=== PATIENT | female | born 1955 | race Caucasian/White ===

== ENCOUNTER 2016-07-30 16:01 | Emergency (ER) | payer OTHER ==
[~2016-07-30] VITALS: Ht 170.2 cm; Wt 77.1 kg
[~2016-07-30 16:01] MED LIST: ASPI-231 PO
[2016-07-30 16:48] LABS: DEFINITIVE VIEW TRANSMISSION; SUSPECT VIEW TRANSMISSION
[2016-07-30] MEDS ORDERED: SUCCINYLCHOLINE CHLORIDE 20 MG/ML 10ML VIAL IV ONE ×2 (16:49→17:30)
[2016-07-30] MEDS ORDERED: ETOMIDATE (2MG/ML) 20ML VIAL IV ONE ×2 (16:49→17:30)
[2016-07-30 16:53] LABS: Hematocrit 35.1 % (36.0-46.0); Hemoglobin 12.1 g/dL (12.2-16.2); Mean Corpuscular Hemoglobin 41.1 pg (28.0-32.0); Mean Corpuscular Hgb Conc. 34.4 g/dL (32.0-36.0); Mean Corpuscular Volume 119.3 fL (80.0-100.0); Mean Platelet Volume 10.8 fL (7.4-10.4); Platelet Count (auto) 108 10^3/uL (140-450); Red Cell Distribution Width 21.5 % (11.6-16.0); White Blood Cell 10.6 10^3/uL (4.4-10.8)
[2016-07-30 16:55] LABS: Metamyelocytes % 0; Myelocytes % 0; Promyelocytes % 0; Reactive Lymphocytes 0
[2016-07-30 17:00] LABS: Albumin 1.9 g/dL (3.4-5.0); Alkaline Phosphatase 155 U/L (45-117); Anion Gap 10 (5-15); Aspartate Aminotransferase 176 U/L (15-37); BUN/Creatinine Ratio 18.2; Bilirubin, Total 5.8 mg/dL (0.2-1.0); Blood Urea Nitrogen 16 mg/dL (7-18); Calcium 7.3 mg/dL (8.5-10.1); Carbon Dioxide 33 mmol/L (21-32); Chloride 94 mmol/L (98-107); GFR African American 84 mL/min; GFR Non-African American 69 mL/min; Glucose 104 mg/dL (74-106); Magnesium 2.1 mg/dL (1.6-2.6); Sodium 137 mmol/L (136-145); Total Protein 7.1 g/dL (6.4-8.2)
[2016-07-30] MEDS ORDERED: MIDAZOLAM DRIP 100 mg/100mL NS 100 ML IV ONE (17:00)
[2016-07-30 17:28] LABS: Anisocytosis Marked; Macrocytosis Marked
[2016-07-30 17:29] LABS: Large Platelets FEW; Platelet Estimate Decrea; Stomatocytes Few
[2016-07-30] MEDS ORDERED: MORPHINE SULFATE 4 MG/ML SYRG IV ONE (17:30)
[2016-07-30] MEDS ORDERED: FUROSEMIDE 40 MG/4 ML VIAL IV ONE (17:30)
[2016-07-30] MEDS ORDERED: MIDAZOLAM DRIP 100 mg/100mL NS 100 ML IV SCH (17:30)
[2016-07-30] MEDS ORDERED: ONDANSETRON HCL 4 MG/2 ML VIAL IV ONE (17:30)
[2016-07-30 17:45] LABS: Potassium 2.2 mmol/L (3.5-5.1)
[2016-07-30] MEDS ORDERED: POTASSIUM CHL 20MEQ/100ML 100 ML IV SCH (17:45)
[2016-07-30 18:48] VITALS: BP 105/66
[2016-07-30 18:48] LABS: Lactic Acid 2.6 mmol/L (0.4-2.0)
[2016-07-30 19:18] LABS: REFLEX LACTIC ACID YES OR NO YES
[2016-07-30 20:22] LABS: Urine Blood Negative /uL (Negative); Urine Color Orange (Yellow); Urine Glucose Normal (Normal); Urine Ketone Negative (Negative); Urine Nitrite Negative (Negative); Urine RBC 1 /hpf (0 - 4); Urine Squamous Epithelial Cell FEW /hpf (<5); Urine Urobilinogen >12.0 mg/dL (Negative); Urine pH 6.5 (5.0-8.0)
[2016-07-30 20:43] LABS: Urine Bilirubin Negative (Negative)
== END 2016-07-30 19:43 | disposition short-term general hospital (02) ==
LOC: ER 16:01 → EDBD 16:01 → ER 19:43
DX: S42.201A Unspecified fracture of upper end of right humerus, initial encounter for closed fracture (principal); G93.41 Metabolic encephalopathy; I50.9 Heart failure, unspecified; M19.90 Unspecified osteoarthritis, unspecified site; E87.6 Hypokalemia; J44.9 Chronic obstructive pulmonary disease, unspecified; F17.210 Nicotine dependence, cigarettes, uncomplicated; M54.9 Dorsalgia, unspecified; R41.82 Altered mental status, unspecified; G89.29 Other chronic pain; Z79.82 Long term (current) use of aspirin; X58.XXXA Exposure to other specified factors, initial encounter; Y93.89 Activity, other specified; Y99.8 Other external cause status; Y92.89 Other specified places as the place of occurrence of the external cause
CPT/HCPCS: 31500; 36415; 51702; 70450; 71010; 80053; 80320; 81001; 83605; 83735; 85007; 85027; 87040; 87070; 87077; 87186; 87205; 93005; 96361; 96374; 96375; 99291; G0434; J0330; J1940; J2270; J2405; J3480; J7030

== ENCOUNTER 2016-08-30 16:09 | Emergency (ER) | payer OTHER ==
[~2016-08-30] VITALS: Ht 167.6 cm; Wt 56.7 kg
[2016-08-30 17:40] VITALS: BP 124/67
== END 2016-08-30 19:44 | disposition home or self-care (01) ==
LOC: EDBD 16:09 → ER 16:10
DX: J04.0 Acute laryngitis (principal); M19.90 Unspecified osteoarthritis, unspecified site; J44.9 Chronic obstructive pulmonary disease, unspecified; K76.9 Liver disease, unspecified; Z87.11 Personal history of peptic ulcer disease; Z90.710 Acquired absence of both cervix and uterus; Z90.89 Acquired absence of other organs

== ENCOUNTER 2016-11-26 08:00 | Inpatient (IN) | payer OTHER ==
[2016-11-26] VITALS (24 sets, daily range): BP systolic 70–150; BP diastolic 26–67
[~2016-11-26] VITALS: Ht 162.6 cm; Wt 75.8 kg
[2016-11-26] MEDS ORDERED: PANTOPRAZOLE SODIUM 40 MG/10 ML VIAL IV ONE ×2 (09:15→10:30)
[2016-11-26] MEDS: NOREPINEPHRINE BITARTRATE 250 ML IV SCH (09:45)
[2016-11-26] MEDS ORDERED: SODIUM CHLORIDE 0.9% 1,000 ML IV ONE ×2 (09:45→21:30)
[2016-11-26 09:50] LABS: CONDITION Y; DEFINITIVE SEE PRINTOUT; Hematocrit 23.3 % (36.0-46.0); Mean Corpuscular Hemoglobin 32.3 pg (28.0-32.0); Mean Corpuscular Hgb Conc. 34.5 g/dL (32.0-36.0); Mean Corpuscular Volume 93.7 fL (80.0-100.0); Mean Platelet Volume 12.9 fL (7.4-10.4); Platelet Count (auto) 161 10^3/uL (140-450); Red Cell Distribution Width 16.2 % (11.6-16.0); SUSPECT SEE PRINTOUT
[2016-11-26 09:57] LABS: INR 1.81 (0.9-1.15); Partial Thromboplastin Time 39.9 sec (22.64-33.71)
[2016-11-26 10:00] LABS: Albumin 1.7 g/dL (3.4-5.0); Anion Gap 21 (5-15); Aspartate Aminotransferase 135 U/L (15-37); BUN/Creatinine Ratio 42.3; Calcium 6.7 mg/dL (8.5-10.1); Carbon Dioxide 10 mmol/L (21-32); Chloride 103 mmol/L (98-107); GFR African American 18 mL/min; GFR Non-African American 15 mL/min; Glucose 84 mg/dL (74-106); Potassium 4.8 mmol/L (3.5-5.1); Sodium 134 mmol/L (136-145)
[2016-11-26 10:04] LABS: Alkaline Phosphatase 292 U/L (45-117); Bilirubin, Total 1.8 mg/dL (0.2-1.0); Total Protein 6.5 g/dL (6.4-8.2)
[2016-11-26 10:13] LABS: Prothrombin Time 19.8 sec (9.37-12.3)
[2016-11-26 10:15] LABS: Blood Urea Nitrogen 142 mg/dL (7-18)
[2016-11-26 10:16] LABS: White Blood Cell 46.7 10^3/uL (4.4-10.8)
[2016-11-26 10:17] LABS: Metamyelocytes % 0; Myelocytes % 0; Promyelocytes % 0; Reactive Lymphocytes 0
[2016-11-26] MEDS ORDERED: PIPERACILLIN-TAZOB 2.25GM 50 ML IV ONE (10:30)
[2016-11-26] MEDS ORDERED: NITROGLYCERIN 0.4 MG SL TAB SL PRN (10:30)
[2016-11-26] MEDS ORDERED: SODIUM CHLORIDE 0.9% 2,000 ML IV ONE (10:30)
[2016-11-26] MEDS ORDERED: SODIUM CHLORIDE 0.9% 3,000 ML IV ONE (10:30)
[2016-11-26] MEDS ORDERED: PHYTONADIONE (VIT K)10 MG/ML 1ML VIAL SUBCUT ONE ×2 (10:30→11:15)
[2016-11-26] MEDS ORDERED: MORPHINE SULF INJ 2 MG/ML SYRINGE 1ML IV PRN ×2 (10:30)
[2016-11-26 10:48] LABS: Amylase 30 U/L (25-115)
[2016-11-26 11:26] LABS: Urine Bilirubin Negative (Negative); Urine Glucose Normal (Normal); Urine Ketone Negative (Negative); Urine Nitrite Negative (Negative); Urine RBC 71248 /hpf (0 - 4); Urine Urobilinogen Normal (Negative)
[2016-11-26 11:29] LABS: Urine Blood 2+ /uL (Negative); Urine Color Red (Yellow)
[2016-11-26 11:52] LABS: Lactic Acid w/Reflex 2.4 mmol/L (0.4-2.0)
[2016-11-26 11:57] LABS: Platelet Estimate Adequate
[2016-11-26 11:59] LABS: Burr Cells FEW; Ovalocytes FEW
[2016-11-26 12:21] LABS: REFLEX LACTIC ACID YES OR NO YES
[2016-11-26] MEDS: LINEZOLID 600MG/300ML 300 ML IV SCH (12:29)
[2016-11-26] MEDS: metroNIDAZOLE 500MG/100ML 100 ML IV SCH ×2 (12:29→18:00)
[2016-11-26] MEDS ORDERED: SODIUM CHLORIDE 0.9% 1,000 ML IV SCH (12:30)
[2016-11-26] MEDS: RIFAXIMIN 550 MG TAB PO SCH (13:30)
[2016-11-26] MEDS: LACTULOSE 20Gm/30ML SOLN NG SCH ×2 (14:30→18:00)
[2016-11-26 14:40] LABS: Hematocrit 19.6 % (36.0-46.0)
[2016-11-26 15:30] LABS: Hemoglobin 6.8 g/dL (12.2-16.2)
[2016-11-26] MEDS ORDERED: SUCCINYLCHOLINE CHLORIDE 20 MG/ML 10ML VIAL IV ONE ×2 (16:30→17:15)
[2016-11-26] MEDS ORDERED: ETOMIDATE (2MG/ML) 20ML VIAL IV ONE ×2 (16:30→17:15)
[2016-11-26] MEDS: MIDAZOLAM DRIP 100 mg/100mL NS 100 ML IV SCH (17:08)
[2016-11-26] MEDS: PIPERACILLIN-TAZOB 2.25GM 50 ML IV SCH (18:00)
[2016-11-26 18:17] LABS: Base Excess -18.4 mmol/L (-2.0-2.0); Blood 02Sat 99.2 % (96-100); Blood COHb 0.3 % (0.5-1.5); Blood MetHb 0.8 % (0.0-1.5); HCO3 7.8 mmol/L (22-26.0); HHb 0.8 % (0.0-5.0); MODE VENT - A/C; O2Hb 98.1 % (94.0-97.0); PCO2 20.3 mmHg (35.0-45.0); PCO2(T) 20.3 mmHg (35.0-45.0); PO2 482.4 mmHg (80.0-100.0); PO2(T) 482.4 mmHg (80.0-100.0); Room 1009-ERT; Sample Type Arterial; pH 7.204 (7.350-7.450)
[2016-11-26 18:34] LABS: Hematocrit 19.3 % (36.0-46.0)
[2016-11-26 18:37] LABS: Hemoglobin 6.4 g/dL (12.2-16.2)
[2016-11-26 18:49] LABS: BUN/Creatinine Ratio 42.3; Calcium 6.2 mg/dL (8.5-10.1); Potassium 4.9 mmol/L (3.5-5.1)
[2016-11-26 20:47] LABS: Base Excess -18.1 mmol/L (-2.0-2.0); Blood 02Sat 97.5 % (96-100); Blood COHb 0.1 % (0.5-1.5); Blood MetHb 0.3 % (0.0-1.5); HCO3 7.2 mmol/L (22-26.0); HHb 2.5 % (0.0-5.0); MODE VENT - A/C; O2Hb 97.1 % (94.0-97.0); PCO2 16.5 mmHg (35.0-45.0); PCO2(T) 16.5 mmHg (35.0-45.0); PO2 126.4 mmHg (80.0-100.0); PO2(T) 126.4 mmHg (80.0-100.0); Sample Type Arterial; pH 7.257 (7.350-7.450)
[2016-11-26] MEDS ORDERED: SODIUM BICARBONATE 8.4 % INJ 50ML VIAL IV ONE (21:30)
[2016-11-26] MEDS ORDERED: SODIUM BICARBONATE 8.4% INJ 50ML SYRINGE ONE ×2 (22:38→22:39)
[2016-11-26] MEDS: SODIUM BICARBONATE 50ML VIAL 50 ML in SOD CHL 0.45% 1,000 ML IV SCH (23:00)
[2016-11-27] VITALS (116 sets, daily range): BP systolic 60–163; BP diastolic 28–87
[2016-11-27] MEDS: LACTULOSE 20Gm/30ML SOLN NG SCH ×7 (01:05→22:00)
[2016-11-27] MEDS: PANTOPRAZOLE SODIUM 40 MG/10 ML VIAL IV SCH ×3 (01:05→22:52)
[2016-11-27] MEDS: RIFAXIMIN 550 MG TAB PO SCH ×3 (01:06→22:00)
[2016-11-27] MEDS: metroNIDAZOLE 500MG/100ML 100 ML IV SCH ×4 (01:07→18:27)
[2016-11-27] MEDS: PIPERACILLIN-TAZOB 2.25GM 50 ML IV SCH ×3 (01:33→18:09)
[2016-11-27] MEDS: LINEZOLID 600MG/300ML 300 ML IV SCH ×2 (01:33→11:56)
[2016-11-27] MEDS: SODIUM BICARBONATE 50ML VIAL 50 ML in SOD CHL 0.45% 1,000 ML IV SCH ×2 (03:15→10:15)
[2016-11-27 04:06] LABS: CONDITION Y; DEFINITIVE SEE PRINTOUT; Hematocrit 22.3 % (36.0-46.0); Hemoglobin 7.7 g/dL (12.2-16.2); Mean Corpuscular Hgb Conc. 34.7 g/dL (32.0-36.0); Mean Corpuscular Volume 89.4 fL (80.0-100.0); Mean Platelet Volume 12.1 fL (7.4-10.4); Platelet Count (auto) 119 10^3/uL (140-450); Red Cell Distribution Width 16.7 % (11.6-16.0); SUSPECT SEE PRINTOUT
[2016-11-27 04:20] LABS: White Blood Cell 48.7 10^3/uL (4.4-10.8)
[2016-11-27 04:22] LABS: Metamyelocytes % 0; Myelocytes % 0; Promyelocytes % 0; Reactive Lymphocytes 0
[2016-11-27 04:25] LABS: INR 1.71 (0.9-1.15); Partial Thromboplastin Time 38.8 sec (22.64-33.71)
[2016-11-27 04:29] LABS: Prothrombin Time 18.7 sec (9.37-12.3)
[2016-11-27 04:45] LABS: Albumin 1.5 g/dL (3.4-5.0); BUN/Creatinine Ratio 43.3; Bilirubin, Total 2.1 mg/dL (0.2-1.0); Potassium 3.7 mmol/L (3.5-5.1); Total Protein 5.1 g/dL (6.4-8.2)
[2016-11-27 04:48] LABS: Calcium 5.9 mg/dL (8.5-10.1)
[2016-11-27 05:52] LABS: Burr Cells FEW; Platelet Estimate Decreased
[2016-11-27 05:53] LABS: Anisocytosis Slight; Ovalocytes FEW
[2016-11-27] MEDS: NOREPINEPHRINE BITARTRATE 250 ML IV SCH (07:03)
[2016-11-27] MEDS: PHENYLEPHRINE INJ 20 MG in SODIUM CHL 0.9% 250 ML IV SCH ×3 (07:15→22:52)
[2016-11-27 09:15] LABS: Base Excess -12.2 mmol/L (-2.0-2.0); Blood 02Sat 92.2 % (96-100); Blood COHb 0.2 % (0.5-1.5); Blood MetHb 0.6 % (0.0-1.5); HHb 7.7 % (0.0-5.0); MODE VENT - A/C; O2Hb 91.5 % (94.0-97.0); PCO2 18.1 mmHg (35.0-45.0); PCO2(T) 18.1 mmHg (35.0-45.0); PO2 71.7 mmHg (80.0-100.0); PO2(T) 71.7 mmHg (80.0-100.0); Sample Type Arterial; pH 7.402 (7.350-7.450)
[2016-11-27] MEDS ORDERED: PANTOPRAZOLE SODIUM 40 MG/10 ML VIAL IV SCH (10:00)
[2016-11-27] MEDS ORDERED: OCTREOTIDE ACETATE 100 MCG in SODIUM CHL 0.9% 50 ML IV ONE (11:15)
[2016-11-27] MEDS ORDERED: DESMOPRESSIN INJECTION 20 MCG in SODIUM CHL 0.9% 50 ML IV ONE (11:30)
[2016-11-27] MEDS: OCTREOTIDE ACETATE 500 MCG in SODIUM CHL 0.9% 99 ML IV SCH ×2 (11:47→21:15)
[2016-11-27] MEDS: MIDAZOLAM DRIP 100 mg/100mL NS 100 ML IV SCH ×2 (11:57→20:53)
[2016-11-27] MEDS ORDERED: EPINEPHrine HCL 1 MG/10 ML SYRG ONE (12:35)
[2016-11-27 13:18] LABS: Urine Color Red (Yellow); Urine Glucose Normal (Normal); Urine Ketone Negative (Negative); Urine Nitrite Negative (Negative); Urine RBC 61674 /hpf (0 - 4); Urine Urobilinogen Normal (Negative); Urine pH 6.5 (5.0-8.0)
[2016-11-27 13:41] LABS: Urine Blood 2+ /uL (Negative)
[2016-11-27 13:42] LABS: Urine Bilirubin Negative (Negative)
[2016-11-27] MEDS: ALBUMIN 25% 100 ML IV SCH ×2 (15:51→22:52)
[2016-11-27] MEDS: SODIUM BICARBONATE 50ML VIAL 100 ML in SOD CHL 0.45% 1,000 ML IV SCH (20:15)
[2016-11-28] VITALS (88 sets, daily range): BP systolic 97–187; BP diastolic 44–88
[2016-11-28] MEDS: LINEZOLID 600MG/300ML 300 ML IV SCH (00:21)
[2016-11-28] MEDS: metroNIDAZOLE 500MG/100ML 100 ML IV SCH ×5 (00:21→23:39)
[2016-11-28] MEDS: LACTULOSE 20Gm/30ML SOLN NG SCH ×6 (02:00→22:00)
[2016-11-28] MEDS: PIPERACILLIN-TAZOB 2.25GM 50 ML IV SCH ×2 (04:14→10:13)
[2016-11-28] MEDS: SODIUM BICARBONATE 50ML VIAL 100 ML in SOD CHL 0.45% 1,000 ML IV SCH ×4 (04:14→20:00)
[2016-11-28 04:30] LABS: CONDITION Y; DEFINITIVE SEE PRINTOUT; Hematocrit 19.3 % (36.0-46.0); Mean Corpuscular Hgb Conc. 35.1 g/dL (32.0-36.0); Mean Corpuscular Volume 88.3 fL (80.0-100.0); Mean Platelet Volume 13.5 fL (7.4-10.4); Platelet Count (auto) 81 10^3/uL (140-450); Red Cell Distribution Width 15.6 % (11.6-16.0); SUSPECT SEE PRINTOUT
[2016-11-28] MEDS: PHENYLEPHRINE INJ 20 MG in SODIUM CHL 0.9% 250 ML IV SCH ×2 (04:34→15:29)
[2016-11-28 04:40] LABS: Hemoglobin 6.8 g/dL (12.2-16.2); White Blood Cell 31.1 10^3/uL (4.4-10.8)
[2016-11-28 04:41] LABS: Metamyelocytes % 0; Myelocytes % 0; Promyelocytes % 0; Reactive Lymphocytes 0
[2016-11-28 04:57] LABS: Albumin 2.7 g/dL (3.4-5.0); BUN/Creatinine Ratio 38.9; Bilirubin, Total 2.5 mg/dL (0.2-1.0); Calcium 6.1 mg/dL (8.5-10.1); Magnesium 2.5 mg/dL (1.6-2.6); Phosphorus 7.4 mg/dL (2.5-4.90); Potassium 3.1 mmol/L (3.5-5.1); Total Protein 5.7 g/dL (6.4-8.2)
[2016-11-28] MEDS: MIDAZOLAM DRIP 100 mg/100mL NS 100 ML IV SCH ×2 (05:02→10:14)
[2016-11-28] MEDS: ALBUMIN 25% 100 ML IV SCH ×3 (05:13→22:26)
[2016-11-28 05:40] LABS: Platelet Estimate Decreased
[2016-11-28 05:41] LABS: Anisocytosis Slight; Ovalocytes FEW
[2016-11-28 05:42] LABS: Burr Cells FEW
[2016-11-28] MEDS: OCTREOTIDE ACETATE 500 MCG in SODIUM CHL 0.9% 99 ML IV SCH ×2 (06:38→16:25)
[2016-11-28] MEDS: NOREPINEPHRINE BITARTRATE 250 ML IV SCH (06:38)
[2016-11-28 07:27] LABS: Base Excess -7.2 mmol/L (-2.0-2.0); Blood 02Sat 95.9 % (96-100); Blood COHb 0.3 % (0.5-1.5); Blood MetHb 0.7 % (0.0-1.5); HCO3 15.7 mmol/L (22-26.0); HHb 4.1 % (0.0-5.0); IE RATIO 1.1.8; MODE VENT - A/C; O2Hb 94.9 % (94.0-97.0); PCO2 22.3 mmHg (35.0-45.0); PCO2(T) 22.3 mmHg (35.0-45.0); PIP 12; PO2 97.4 mmHg (80.0-100.0); PO2(T) 97.4 mmHg (80.0-100.0); Sample Type Arterial; Spont Vt 528; pH 7.466 (7.350-7.450)
[2016-11-28] MEDS: POTASSIUM CHL 20MEQ/100ML 100 ML IV SCH ×2 (08:15→10:14)
[2016-11-28] MEDS: RIFAXIMIN 550 MG TAB PO SCH ×2 (10:00→22:00)
[2016-11-28] MEDS: PANTOPRAZOLE SODIUM 40 MG/10 ML VIAL IV SCH ×2 (10:13→22:26)
[2016-11-28] MEDS ORDERED: POTASSIUM CHL 20MEQ/100ML 100 ML IV SCH (11:00)
[2016-11-28] MEDS: MEROPENEM 500MG IVPB 100 ML IV SCH ×2 (13:24→23:39)
[2016-11-28] MEDS ORDERED: MEROPENEM 1GM IVPB 100 ML IV SCH (14:00)
[2016-11-29] VITALS (102 sets, daily range): BP systolic 108–149; BP diastolic 49–81
[2016-11-29] MEDS ORDERED: POTASSIUM CHL 20MEQ/100ML 100 ML IV ONE (00:45)
[2016-11-29] MEDS: PHENYLEPHRINE INJ 20 MG in SODIUM CHL 0.9% 250 ML IV SCH ×3 (00:55→17:35)
[2016-11-29] MEDS: SODIUM BICARBONATE 50ML VIAL 100 ML in SOD CHL 0.45% 1,000 ML IV SCH ×3 (02:00→21:57)
[2016-11-29] MEDS: OCTREOTIDE ACETATE 500 MCG in SODIUM CHL 0.9% 99 ML IV SCH (02:00)
[2016-11-29] MEDS: LACTULOSE 20Gm/30ML SOLN NG SCH ×3 (02:00→10:22)
[2016-11-29 04:16] LABS: CONDITION Y; Hemoglobin 8.9 g/dL (12.2-16.2); Mean Corpuscular Hemoglobin 30.8 pg (28.0-32.0); Mean Corpuscular Hgb Conc. 34.2 g/dL (32.0-36.0); Mean Corpuscular Volume 90.1 fL (80.0-100.0); Mean Platelet Volume 14.2 fL (7.4-10.4); Platelet Count (auto) 77 10^3/uL (140-450); Red Cell Distribution Width 15.7 % (11.6-16.0); SUSPECT SEE PRINTOUT; White Blood Cell 25.5 10^3/uL (4.4-10.8)
[2016-11-29 04:23] LABS: Metamyelocytes % 0; Myelocytes % 0; Promyelocytes % 0; Reactive Lymphocytes 0
[2016-11-29 04:26] LABS: INR 1.72 (0.9-1.15); Partial Thromboplastin Time 43.5 sec (22.64-33.71)
[2016-11-29 04:27] LABS: Prothrombin Time 18.9 sec (9.37-12.3)
[2016-11-29 04:32] LABS: BUN/Creatinine Ratio 35.1; Bilirubin, Total 3.9 mg/dL (0.2-1.0); Calcium 6.7 mg/dL (8.5-10.1); Magnesium 2.4 mg/dL (1.6-2.6); Phosphorus 6.9 mg/dL (2.5-4.90); Total Protein 5.5 g/dL (6.4-8.2)
[2016-11-29 05:18] LABS: Anisocytosis Slight; Burr Cells FEW; Ovalocytes FEW; Platelet Estimate Decreased
[2016-11-29] MEDS: metroNIDAZOLE 500MG/100ML 100 ML IV SCH ×4 (05:30→23:58)
[2016-11-29] MEDS: ALBUMIN 25% 100 ML IV SCH (05:31)
[2016-11-29 07:41] LABS: Allen Test Modified; Base Excess -0.1 mmol/L (-2.0-2.0); Blood 02Sat 96.1 % (96-100); Blood COHb 0.1 % (0.5-1.5); Blood MetHb 0.3 % (0.0-1.5); HCO3 22.2 mmol/L (22-26.0); HHb 3.9 % (0.0-5.0); MODE VENT - A/C; O2Hb 95.7 % (94.0-97.0); PCO2 27.9 mmHg (35.0-45.0); PCO2(T) 27.9 mmHg (35.0-45.0); PO2 97.6 mmHg (80.0-100.0); PO2(T) 97.6 mmHg (80.0-100.0); Sample Type Arterial; pH 7.518 (7.350-7.450)
[2016-11-29] MEDS: NOREPINEPHRINE BITARTRATE 250 ML IV SCH (09:45)
[2016-11-29] MEDS: PANTOPRAZOLE SODIUM 40 MG/10 ML VIAL IV SCH (10:22)
[2016-11-29] MEDS: RIFAXIMIN 550 MG TAB PO SCH ×2 (10:22→21:51)
[2016-11-29] MEDS: MEROPENEM 500MG IVPB 100 ML IV SCH ×2 (11:30→23:21)
[2016-11-29] MEDS: FAMOTIDINE (10MG/ML) 2ML VL IV SCH ×2 (11:30→21:46)
[2016-11-29 15:43] LABS: Allen Test Modified; Base Excess -0.6 mmol/L (-2.0-2.0); Blood COHb 0.2 % (0.5-1.5); Blood MetHb 0.4 % (0.0-1.5); HCO3 22.1 mmol/L (22-26.0); MODE VENT - A/C; O2Hb 95.4 % (94.0-97.0); PCO2 29.9 mmHg (35.0-45.0); PCO2(T) 29.9 mmHg (35.0-45.0); PO2 99.7 mmHg (80.0-100.0); PO2(T) 99.7 mmHg (80.0-100.0); Sample Type Arterial; pH 7.487 (7.350-7.450)
[2016-11-29] MEDS: MIDAZOLAM DRIP 100 mg/100mL NS 100 ML IV SCH (16:44)
[2016-11-29] MEDS: LACTULOSE 20Gm/30ML SOLN PO SCH ×2 (18:00→21:47)
[2016-11-30] VITALS (74 sets, daily range): BP systolic 109–172; BP diastolic 45–87
[2016-11-30] MEDS: PHENYLEPHRINE INJ 20 MG in SODIUM CHL 0.9% 250 ML IV SCH ×3 (01:37→20:18)
[2016-11-30] MEDS: LACTULOSE 20Gm/30ML SOLN PO SCH ×4 (01:45→21:02)
[2016-11-30 03:48] LABS: CONDITION Y; Hematocrit 27.1 % (36.0-46.0); Hemoglobin 9.3 g/dL (12.2-16.2); Mean Corpuscular Hemoglobin 30.8 pg (28.0-32.0); Mean Corpuscular Hgb Conc. 34.4 g/dL (32.0-36.0); Mean Corpuscular Volume 89.6 fL (80.0-100.0); Mean Platelet Volume 14.8 fL (7.4-10.4); Platelet Count (auto) 79 10^3/uL (140-450); Red Cell Distribution Width 16.3 % (11.6-16.0); SUSPECT SEE PRINTOUT; White Blood Cell 19.3 10^3/uL (4.4-10.8)
[2016-11-30 04:04] LABS: Metamyelocytes % 0; Myelocytes % 0; Promyelocytes % 0; Reactive Lymphocytes 0
[2016-11-30 04:09] LABS: Albumin 2.7 g/dL (3.4-5.0); BUN/Creatinine Ratio 34.4; Bilirubin, Total 4.3 mg/dL (0.2-1.0); Calcium 7.3 mg/dL (8.5-10.1); Magnesium 2.4 mg/dL (1.6-2.6); Phosphorus 6.7 mg/dL (2.5-4.90); Total Protein 5.4 g/dL (6.4-8.2)
[2016-11-30 04:43] LABS: Partial Thromboplastin Time 47.4 sec (22.64-33.71)
[2016-11-30] MEDS: metroNIDAZOLE 500MG/100ML 100 ML IV SCH ×3 (05:08→17:34)
[2016-11-30 05:30] LABS: Anisocytosis Slight; Burr Cells FEW; Ovalocytes FEW; Platelet Estimate Decreased
[2016-11-30] MEDS: SODIUM BICARBONATE 50ML VIAL 100 ML in SOD CHL 0.45% 1,000 ML IV SCH (05:51)
[2016-11-30 06:48] LABS: INR 2.06 (0.9-1.15); Prothrombin Time 22.6 sec (9.37-12.3)
[2016-11-30 07:35] LABS: Allen Test Yes; Base Excess 2.6 mmol/L (-2.0-2.0); Blood 02Sat 93.6 % (96-100); Blood COHb 0.4 % (0.5-1.5); Blood MetHb 0.4 % (0.0-1.5); HCO3 25.4 mmol/L (22-26.0); HHb 6.3 % (0.0-5.0); MODE VENT - A/C; O2Hb 92.9 % (94.0-97.0); PCO2 33.2 mmHg (35.0-45.0); PCO2(T) 33.2 mmHg (35.0-45.0); PO2 75.6 mmHg (80.0-100.0); PO2(T) 75.6 mmHg (80.0-100.0); Sample Type Arterial; pH 7.501 (7.350-7.450)
[2016-11-30] MEDS: NOREPINEPHRINE BITARTRATE 250 ML IV SCH (09:45)
[2016-11-30] MEDS ORDERED: D5W/ SOD CHL 0.9%/KCL 20MEQ 1,000 ML IV SCH (10:00)
[2016-11-30] MEDS ORDERED: POTASSIUM CHLORIDE 40 MEQ, LIDOCAINE 1% (LOCAL ANESTH.) 4 ML in SODIUM CHL 0.9% 250 ML IV ONE (10:30)
[2016-11-30] MEDS: RIFAXIMIN 550 MG TAB PO SCH ×2 (10:30→22:06)
[2016-11-30] MEDS: FAMOTIDINE (10MG/ML) 2ML VL IV SCH ×2 (10:30→22:01)
[2016-11-30] MEDS: D5W/ SOD CHL 0.9%/KCL 20MEQ 1,000 ML IV SCH ×2 (11:30→20:00)
[2016-11-30] MEDS: MEROPENEM 500MG IVPB 100 ML IV SCH ×2 (11:40→23:20)
[2016-11-30] MEDS: CALCIUM ACETATE 667 MG CAP PO SCH ×2 (14:20→22:01)
[2016-11-30] MEDS: MIDAZOLAM DRIP 100 mg/100mL NS 100 ML IV SCH (16:44)
[2016-11-30] MEDS ORDERED: LACTULOSE 20Gm/30ML SOLN PO SCH (22:00)
[2016-12-01] VITALS (90 sets, daily range): BP systolic 105–161; BP diastolic 43–82
[2016-12-01] MEDS: metroNIDAZOLE 500MG/100ML 100 ML IV SCH ×4 (00:14→18:15)
[2016-12-01] MEDS: PHENYLEPHRINE INJ 20 MG in SODIUM CHL 0.9% 250 ML IV SCH ×4 (02:55→22:32)
[2016-12-01 04:07] LABS: CONDITION Y; Hematocrit 26.9 % (36.0-46.0); Mean Corpuscular Hgb Conc. 33.5 g/dL (32.0-36.0); Mean Corpuscular Volume 92.3 fL (80.0-100.0); Mean Platelet Volume 14.8 fL (7.4-10.4); Platelet Count (auto) 75 10^3/uL (140-450); Red Cell Distribution Width 16.1 % (11.6-16.0); SUSPECT SEE PRINTOUT; White Blood Cell 15.6 10^3/uL (4.4-10.8)
[2016-12-01 04:12] LABS: BUN/Creatinine Ratio 32.2; Calcium 7.5 mg/dL (8.5-10.1); Potassium 3.5 mmol/L (3.5-5.1)
[2016-12-01 05:01] LABS: Metamyelocytes % 0; Myelocytes % 0; Promyelocytes % 0; Reactive Lymphocytes 0
[2016-12-01 05:41] LABS: Anisocytosis Moderate; Burr Cells FEW; Ovalocytes FEW; Platelet Estimate Decreased
[2016-12-01] MEDS: CALCIUM ACETATE 667 MG CAP PO SCH ×3 (06:08→22:00)
[2016-12-01] MEDS: D5W/ SOD CHL 0.9%/KCL 20MEQ 1,000 ML IV SCH (06:08)
[2016-12-01 07:17] LABS: Allen Test Yes; Base Excess 2.2 mmol/L (-2.0-2.0); Blood 02Sat 93.5 % (96-100); Blood COHb 0.1 % (0.5-1.5); Blood MetHb 0.3 % (0.0-1.5); HCO3 24.5 mmol/L (22-26.0); HHb 6.5 % (0.0-5.0); MODE VENT - A/C; O2Hb 93.1 % (94.0-97.0); PCO2 29.9 mmHg (35.0-45.0); PCO2(T) 29.3 mmHg (35.0-45.0); PO2 76.8 mmHg (80.0-100.0); PO2(T) 74.3 mmHg (80.0-100.0); Sample Type Arterial; pH 7.532 (7.350-7.450)
[2016-12-01] MEDS: LACTULOSE 20Gm/30ML SOLN PO SCH ×2 (08:45→21:00)
[2016-12-01] MEDS: NOREPINEPHRINE BITARTRATE 250 ML IV SCH (09:45)
[2016-12-01] MEDS: FAMOTIDINE (10MG/ML) 2ML VL IV SCH ×2 (10:40→22:00)
[2016-12-01] MEDS: RIFAXIMIN 550 MG TAB PO SCH ×2 (10:41→22:00)
[2016-12-01] MEDS: SOD CHL 0.45% WITH 20MEQ KCL 1,000 ML IV SCH (11:30)
[2016-12-01] MEDS: MEROPENEM 500MG IVPB 100 ML IV SCH ×2 (11:30→22:32)
[2016-12-01] MEDS: MIDAZOLAM DRIP 50 mg/50mL NS 50 ML IV SCH (11:30)
[2016-12-01] MEDS ORDERED: MORPHINE SULFATE 4 MG/ML SYRG IV PRN (14:09)
[2016-12-02] VITALS (62 sets, daily range): BP systolic 125–170; BP diastolic 57–117
[2016-12-02] MEDS ORDERED: LORazepam 2MG/ML-1ML VIAL IV PRN (05:15)
[2016-12-02] MEDS: CALCIUM ACETATE 667 MG CAP PO SCH ×3 (06:29→22:07)
[2016-12-02] MEDS: metroNIDAZOLE 500MG/100ML 100 ML IV SCH ×4 (06:29→19:41)
[2016-12-02 06:38] LABS: BUN/Creatinine Ratio 32.4; Calcium 7.9 mg/dL (8.5-10.1); Potassium 3.6 mmol/L (3.5-5.1)
[2016-12-02] MEDS: SOD CHL 0.45% WITH 20MEQ KCL 1,000 ML IV SCH (08:00)
[2016-12-02 08:46] LABS: Allen Test Yes; Base Excess -1.6 mmol/L (-2.0-2.0); Blood 02Sat 97.4 % (96-100); Blood COHb 0.2 % (0.5-1.5); Blood MetHb 0.4 % (0.0-1.5); HCO3 18.4 mmol/L (22-26.0); HHb 2.6 % (0.0-5.0); MODE VENT - A/C; O2Hb 96.8 % (94.0-97.0); PCO2 18.7 mmHg (35.0-45.0); PCO2(T) 18.7 mmHg (35.0-45.0); PO2 112.7 mmHg (80.0-100.0); PO2(T) 112.7 mmHg (80.0-100.0); Sample Type Arterial; pH 7.612 (7.350-7.450)
[2016-12-02] MEDS: LACTULOSE 20Gm/30ML SOLN PO SCH (09:00)
[2016-12-02] MEDS: NOREPINEPHRINE BITARTRATE 250 ML IV SCH (09:45)
[2016-12-02] MEDS: RIFAXIMIN 550 MG TAB PO SCH ×2 (11:01→22:07)
[2016-12-02] MEDS: FAMOTIDINE (10MG/ML) 2ML VL IV SCH ×2 (11:01→22:07)
[2016-12-02] MEDS: MEROPENEM 500MG IVPB 100 ML IV SCH ×2 (11:01→23:42)
[2016-12-02] MEDS: MIDAZOLAM DRIP 50 mg/50mL NS 50 ML IV SCH (11:02)
[2016-12-02 11:06] LABS: CONDITION Y; DEFINITIVE SEE PRINTOUT; Hemoglobin 8.9 g/dL (12.2-16.2); Mean Corpuscular Hemoglobin 31.5 pg (28.0-32.0); Mean Corpuscular Volume 92.7 fL (80.0-100.0); Mean Platelet Volume 15.2 fL (7.4-10.4); Platelet Count (auto) 84 10^3/uL (140-450); Red Cell Distribution Width 16.1 % (11.6-16.0); SUSPECT SEE PRINTOUT; White Blood Cell 19.1 10^3/uL (4.4-10.8)
[2016-12-02 11:10] LABS: INR 1.79 (0.9-1.15)
[2016-12-02 11:13] LABS: Metamyelocytes % 0; Myelocytes % 0; Promyelocytes % 0; Reactive Lymphocytes 0
[2016-12-02 11:14] LABS: Prothrombin Time 19.6 sec (9.37-12.3)
[2016-12-02 11:26] LABS: Platelet Estimate Decreased
[2016-12-02 14:34] LABS: Allen Test Yes; Base Excess 0.9 mmol/L (-2.0-2.0); Blood 02Sat 94.1 % (96-100); Blood COHb 0.4 % (0.5-1.5); Blood MetHb 0.3 % (0.0-1.5); HCO3 23.8 mmol/L (22-26.0); HHb 5.9 % (0.0-5.0); MODE VENT - CPAP; O2Hb 93.4 % (94.0-97.0); PCO2 31.2 mmHg (35.0-45.0); PCO2(T) 31.2 mmHg (35.0-45.0); PO2 78.7 mmHg (80.0-100.0); PO2(T) 78.7 mmHg (80.0-100.0); Pressure Support 8; Sample Type Arterial
[2016-12-02] MEDS: PHENYLEPHRINE INJ 20 MG in SODIUM CHL 0.9% 250 ML IV SCH (15:33)
[2016-12-02] MEDS ORDERED: LIDOCAINE HCL 2 % INJ 2ML MPF NEB ONE (17:00)
[2016-12-02] MEDS: MORPHINE SULFATE 4 MG/ML SYRG IV PRN (22:25)
[2016-12-03] VITALS (47 sets, daily range): BP systolic 147–174; BP diastolic 73–88
[2016-12-03] MEDS: SOD CHL 0.45% WITH 20MEQ KCL 1,000 ML IV SCH ×2 (03:00→23:00)
[2016-12-03] MEDS ORDERED: FUROSEMIDE 20 MG/2 ML VIAL IV ONE ×2 (03:45→08:45)
[2016-12-03] MEDS: metroNIDAZOLE 500MG/100ML 100 ML IV SCH ×4 (05:32→19:45)
[2016-12-03] MEDS: CALCIUM ACETATE 667 MG CAP PO SCH ×3 (05:32→22:23)
[2016-12-03] MEDS: MORPHINE SULFATE 4 MG/ML SYRG IV PRN ×2 (05:32→12:18)
[2016-12-03 08:37] LABS: Allen Test Yes; Base Excess -3.4 mmol/L (-2.0-2.0); Blood 02Sat 89.3 % (96-100); Blood COHb 0.1 % (0.5-1.5); Blood MetHb 0.4 % (0.0-1.5); HCO3 20.2 mmol/L (22-26.0); HHb 10.6 % (0.0-5.0); MODE MASK - AEROSOL; O2Hb 88.9 % (94.0-97.0); PCO2 30.7 mmHg (35.0-45.0); PCO2(T) 30.7 mmHg (35.0-45.0); PO2 62.1 mmHg (80.0-100.0); PO2(T) 62.1 mmHg (80.0-100.0); Sample Type Arterial; pH 7.435 (7.350-7.450)
[2016-12-03] MEDS: NOREPINEPHRINE BITARTRATE 250 ML IV SCH (09:45)
[2016-12-03 09:49] LABS: Basophils # (auto) 0.2 uL; Basophils % (auto) 0.8 % (0.0-2.0); CONDITION Y; DEFINITIVE SEE PRINTOUT; Eosinophils # (auto) 0.2 uL; Eosinophils % (auto) 1.1 % (0.0-7.0); Hematocrit 24.1 % (36.0-46.0); Hemoglobin 8.2 g/dL (12.2-16.2); Lymphocytes # (auto) 3.8 uL; Lymphocytes % (auto) 19.5 % (10.0-50.0); Mean Corpuscular Hemoglobin 31.4 pg (28.0-32.0); Mean Corpuscular Hgb Conc. 34.1 g/dL (32.0-36.0); Mean Corpuscular Volume 92.1 fL (80.0-100.0); Mean Platelet Volume 13.2 fL (7.4-10.4); Monocytes % (auto) 10.1 % (0.0-12.0); Neutrophils # (auto) 13.3 uL; Neutrophils % (auto) 68.5 % (37.0-80.0); Platelet Count (auto) 75 10^3/uL (140-450); Red Cell Distribution Width 16.6 % (11.6-16.0); SUSPECT SEE PRINTOUT; White Blood Cell 19.5 10^3/uL (4.4-10.8)
[2016-12-03] MEDS: RIFAXIMIN 550 MG TAB PO SCH ×2 (10:00→22:26)
[2016-12-03 10:01] LABS: Large Platelets FEW; Platelet Estimate Decrea
[2016-12-03 10:06] LABS: Potassium 3.9 mmol/L (3.5-5.1)
[2016-12-03 10:07] LABS: INR 1.67 (0.9-1.15); Partial Thromboplastin Time 38.3 sec (22.64-33.71)
[2016-12-03 10:11] LABS: Prothrombin Time 18.3 sec (9.37-12.3)
[2016-12-03] MEDS ORDERED: PPN PER PHARMACY 0 ML IV SCH (10:15)
[2016-12-03 11:11] LABS: Albumin 2.3 g/dL (3.4-5.0); Bilirubin, Total 2.5 mg/dL (0.2-1.0); Phosphorus 4.9 mg/dL (2.5-4.90); Total Protein 5.7 g/dL (6.4-8.2)
[2016-12-03 11:13] LABS: Bilirubin, Direct 1.4 mg/dL (0-0.2)
[2016-12-03] MEDS ORDERED: DEXTROSE (50%) 50ML SYRG IV SCH (11:15)
[2016-12-03] MEDS: MIDAZOLAM DRIP 50 mg/50mL NS 50 ML IV SCH (11:30)
[2016-12-03] MEDS: MEROPENEM 500MG IVPB 100 ML IV SCH ×2 (11:47→22:28)
[2016-12-03] MEDS: FAMOTIDINE (10MG/ML) 2ML VL IV SCH ×2 (11:52→22:23)
[2016-12-03] MEDS: ACCU-CHEK COMFORT CURVE STRIP VI SCH ×2 (12:00→18:00)
[2016-12-03] MEDS: InsuLIN REG 1unit/0.01ml Soln (100units/ml) SC SCH ×2 (12:00→18:00)
[2016-12-03] MEDS ORDERED: LIDOCAINE HCL 2 % INJ 2ML MPF NEB ONE (13:45)
[2016-12-03] MEDS ORDERED: MEPERIDINE HCL (25 MG/ML) 1ML VIAL IM ONE (13:45)
[2016-12-03] MEDS ORDERED: BENZOCAINE (DENTAL) 20 % SPRAY 60ML MT ONE (14:42)
[2016-12-03] MEDS ORDERED: SODIUM CHLORIDE LOCK 30 ML ONE (14:43)
[2016-12-03] MEDS ORDERED: LIDOCAINE 2%HCL (LOCAL ANESTH.) INJ 20ML MDV ONE (14:43)
[2016-12-03] MEDS ORDERED: EPINEPHrine HCL 1 MG/1 ML AMP ONE (14:43)
[2016-12-03] MEDS ORDERED: LIDOCAINE HCL 2% TOP JELLY 5ML TOP ONE (14:44)
[2016-12-03] MEDS: MIDAZOLAM HCL 5 MG/ML-1ML VIAL ONE ×2 (15:47→15:51)
[2016-12-03] MEDS ORDERED: PPN PER PHARMACY IV NR ×8 (20:00)
[2016-12-04] VITALS (17 sets, daily range): BP systolic 111–167; BP diastolic 46–84
[2016-12-04] MEDS: metroNIDAZOLE 500MG/100ML 100 ML IV SCH ×4 (00:32→18:26)
[2016-12-04] MEDS: MORPHINE SULFATE 4 MG/ML SYRG IV PRN ×3 (04:49→18:47)
[2016-12-04 05:02] LABS: Albumin 2.1 g/dL (3.4-5.0); BUN/Creatinine Ratio 41.3; Calcium 7.8 mg/dL (8.5-10.1); Magnesium 1.9 mg/dL (1.6-2.6); Phosphorus 3.9 mg/dL (2.5-4.90); Potassium 3.8 mmol/L (3.5-5.1); Total Protein 5.4 g/dL (6.4-8.2)
[2016-12-04] MEDS: CALCIUM ACETATE 667 MG CAP PO SCH ×3 (05:16→22:31)
[2016-12-04] MEDS: InsuLIN REG 1unit/0.01ml Soln (100units/ml) SC SCH ×4 (06:00→17:24)
[2016-12-04] MEDS: ACCU-CHEK COMFORT CURVE STRIP VI SCH ×4 (06:10→17:24)
[2016-12-04] MEDS: SOD CHL 0.45% WITH 20MEQ KCL 1,000 ML IV SCH ×2 (10:00→20:15)
[2016-12-04] MEDS: RIFAXIMIN 550 MG TAB PO SCH ×2 (10:45→22:31)
[2016-12-04] MEDS: FAMOTIDINE (10MG/ML) 2ML VL IV SCH ×2 (10:45→22:31)
[2016-12-04] MEDS: MEROPENEM 500MG IVPB 100 ML IV SCH ×2 (12:00→23:00)
[2016-12-04] MEDS ORDERED: PPN PER PHARMACY IV NR ×9 (20:00)
[2016-12-05] MEDS: ACCU-CHEK COMFORT CURVE STRIP VI SCH ×4 (00:11→17:15)
[2016-12-05] MEDS: metroNIDAZOLE 500MG/100ML 100 ML IV SCH ×4 (00:11→17:55)
[2016-12-05] MEDS: MORPHINE SULFATE 4 MG/ML SYRG IV PRN ×5 (00:12→21:29)
[2016-12-05] MEDS: InsuLIN REG 1unit/0.01ml Soln (100units/ml) SC SCH ×4 (06:00→17:14)
[2016-12-05] MEDS: CALCIUM ACETATE 667 MG CAP PO SCH ×3 (06:06→21:31)
[2016-12-05 06:10] LABS: Basophils # (auto) 0.1 uL; Basophils % (auto) 0.4 % (0.0-2.0); CONDITION Y; DEFINITIVE SEE PRINTOUT; Eosinophils # (auto) 0.1 uL; Eosinophils % (auto) 0.6 % (0.0-7.0); Hematocrit 23.6 % (36.0-46.0); Lymphocytes # (auto) 4.2 uL; Lymphocytes % (auto) 25.3 % (10.0-50.0); Mean Corpuscular Hemoglobin 32.2 pg (28.0-32.0); Mean Corpuscular Volume 94.7 fL (80.0-100.0); Mean Platelet Volume 12.4 fL (7.4-10.4); Monocytes # (auto) 2.1 uL; Monocytes % (auto) 12.7 % (0.0-12.0); Platelet Count (auto) 97 10^3/uL (140-450); Red Cell Distribution Width 16.9 % (11.6-16.0); SUSPECT SEE PRINTOUT; White Blood Cell 16.4 10^3/uL (4.4-10.8)
[2016-12-05 06:34] LABS: Albumin 2.2 g/dL (3.4-5.0); BUN/Creatinine Ratio 43.3; Bilirubin, Total 1.9 mg/dL (0.2-1.0); Magnesium 1.8 mg/dL (1.6-2.6); Phosphorus 1.8 mg/dL (2.5-4.90); Potassium 3.9 mmol/L (3.5-5.1); Total Protein 6.1 g/dL (6.4-8.2)
[2016-12-05] MEDS: SOD CHL 0.45% WITH 20MEQ KCL 1,000 ML IV SCH ×2 (07:01→17:14)
[2016-12-05 07:39] LABS: Anisocytosis Slight; Platelet Estimate Decreased
[2016-12-05 09:45] VITALS: BP 131/78
[2016-12-05] MEDS ORDERED: VANCOMYCIN PER PHARMACY 0 MG IV SCH (10:00)
[2016-12-05] MEDS: RIFAXIMIN 550 MG TAB PO SCH ×2 (10:00→21:31)
[2016-12-05] MEDS: FAMOTIDINE (10MG/ML) 2ML VL IV SCH ×2 (10:00→21:29)
[2016-12-05] MEDS ORDERED: SODIUM PHOSP 20MEQ(15MMOL) IN NS 100 ML IV ONE (11:00)
[2016-12-05] MEDS: VANCOMYCIN 1GM/250ML D5W 250 ML IV SCH (11:29)
[2016-12-05] MEDS: Boost Glucose Control 8 Ounces PO SCH ×3 (12:04→21:31)
[2016-12-05] MEDS: MEROPENEM 500MG IVPB 100 ML IV SCH ×2 (12:29→21:32)
[2016-12-05 13:00] VITALS: BP 137/70
[2016-12-05 17:10] VITALS: BP 112/69
[2016-12-05] MEDS ORDERED: TPN PER PHARMACY IV NR ×10 (20:00)
[2016-12-05 22:00] VITALS: BP 111/62
[2016-12-06] VITALS (12 sets, daily range): BP systolic 110–127; BP diastolic 60–76
[2016-12-06] MEDS: metroNIDAZOLE 500MG/100ML 100 ML IV SCH ×5 (00:16→23:53)
[2016-12-06] MEDS: ACCU-CHEK COMFORT CURVE STRIP VI SCH ×4 (00:16→17:05)
[2016-12-06] MEDS: SOD CHL 0.45% WITH 20MEQ KCL 1,000 ML IV SCH ×2 (02:15→13:18)
[2016-12-06] MEDS: MORPHINE SULFATE 4 MG/ML SYRG IV PRN ×4 (02:34→22:50)
[2016-12-06 05:56] LABS: Basophils # (auto) 0 uL; Basophils % (auto) 0.3 % (0.0-2.0); CONDITION Y; DEFINITIVE SEE PRINTOUT; Eosinophils # (auto) 0.1 uL; Eosinophils % (auto) 0.7 % (0.0-7.0); Hematocrit 21.4 % (36.0-46.0); Hemoglobin 7.4 g/dL (12.2-16.2); Lymphocytes # (auto) 3.9 uL; Lymphocytes % (auto) 26.1 % (10.0-50.0); Mean Corpuscular Hgb Conc. 34.5 g/dL (32.0-36.0); Mean Corpuscular Volume 98.3 fL (80.0-100.0); Mean Platelet Volume 13.9 fL (7.4-10.4); Monocytes # (auto) 1.8 uL; Monocytes % (auto) 12.2 % (0.0-12.0); Neutrophils # (auto) 9.1 uL; Neutrophils % (auto) 60.7 % (37.0-80.0); Platelet Count (auto) 108 10^3/uL (140-450); Red Cell Distribution Width 17.1 % (11.6-16.0); SUSPECT SEE PRINTOUT; White Blood Cell 14.9 10^3/uL (4.4-10.8)
[2016-12-06] MEDS: InsuLIN REG 1unit/0.01ml Soln (100units/ml) SC SCH ×4 (06:00→17:05)
[2016-12-06 06:19] LABS: BUN/Creatinine Ratio 45.4; Bilirubin, Total 1.5 mg/dL (0.2-1.0); Calcium 7.7 mg/dL (8.5-10.1); Magnesium 1.8 mg/dL (1.6-2.6); Phosphorus 2.1 mg/dL (2.5-4.90); Potassium 4.5 mmol/L (3.5-5.1); Total Protein 5.8 g/dL (6.4-8.2)
[2016-12-06] MEDS: Boost Glucose Control 8 Ounces PO SCH ×4 (06:43→22:25)
[2016-12-06] MEDS: CALCIUM ACETATE 667 MG CAP PO SCH ×3 (06:44→22:25)
[2016-12-06] MEDS ORDERED: SODIUM PHOSPHATES 20 MEQ in SODIUM CHL 0.9% 100 ML IV ONE (09:00)
[2016-12-06] MEDS: FAMOTIDINE (10MG/ML) 2ML VL IV SCH ×2 (09:02→22:25)
[2016-12-06] MEDS: RIFAXIMIN 550 MG TAB PO SCH ×2 (09:02→22:25)
[2016-12-06] MEDS: VANCOMYCIN 1GM/250ML D5W 250 ML IV SCH (11:34)
[2016-12-06] MEDS: MEROPENEM 500MG IVPB 100 ML IV SCH (11:34)
[2016-12-06] MEDS: ERTAPENEM 1GM IN NS 50 ML IV SCH (13:18)
[2016-12-06] MEDS ORDERED: PPN PER PHARMACY IV NR ×9 (20:00)
[2016-12-07] VITALS (12 sets, daily range): BP systolic 114–133; BP diastolic 54–87
[2016-12-07] MEDS: ACCU-CHEK COMFORT CURVE STRIP VI SCH ×4 (00:30→17:34)
[2016-12-07] MEDS: MORPHINE SULFATE 4 MG/ML SYRG IV PRN ×5 (03:20→21:48)
[2016-12-07] MEDS: SOD CHL 0.45% WITH 20MEQ KCL 1,000 ML IV SCH ×3 (03:21→17:28)
[2016-12-07] MEDS: metroNIDAZOLE 500MG/100ML 100 ML IV SCH ×3 (05:41→17:28)
[2016-12-07] MEDS: Boost Glucose Control 8 Ounces PO SCH ×4 (05:41→21:47)
[2016-12-07] MEDS: InsuLIN REG 1unit/0.01ml Soln (100units/ml) SC SCH ×4 (05:42→17:34)
[2016-12-07 05:50] LABS: Basophils # (auto) 0.1 uL; Basophils % (auto) 0.6 % (0.0-2.0); CONDITION Y; Eosinophils # (auto) 0.1 uL; Eosinophils % (auto) 0.9 % (0.0-7.0); Hematocrit 26.9 % (36.0-46.0); Lymphocytes # (auto) 2.9 uL; Lymphocytes % (auto) 23.5 % (10.0-50.0); Mean Corpuscular Hgb Conc. 33.5 g/dL (32.0-36.0); Mean Corpuscular Volume 92.6 fL (80.0-100.0); Mean Platelet Volume 13.3 fL (7.4-10.4); Monocytes # (auto) 1.6 uL; Monocytes % (auto) 12.6 % (0.0-12.0); Neutrophils # (auto) 7.7 uL; Neutrophils % (auto) 62.4 % (37.0-80.0); Platelet Count (auto) 109 10^3/uL (140-450); Red Cell Distribution Width 18.1 % (11.6-16.0); SUSPECT SEE PRINTOUT; White Blood Cell 12.4 10^3/uL (4.4-10.8)
[2016-12-07 06:12] LABS: BUN/Creatinine Ratio 43.6; Magnesium 1.9 mg/dL (1.6-2.6); Phosphorus 2.8 mg/dL (2.5-4.90); Potassium 4.5 mmol/L (3.5-5.1); Total Protein 5.8 g/dL (6.4-8.2)
[2016-12-07] MEDS: CALCIUM ACETATE 667 MG CAP PO SCH ×3 (06:22→21:48)
[2016-12-07] MEDS: RIFAXIMIN 550 MG TAB PO SCH ×2 (09:55→21:48)
[2016-12-07] MEDS: FAMOTIDINE (10MG/ML) 2ML VL IV SCH ×2 (09:55→21:47)
[2016-12-07] MEDS: VANCOMYCIN 1GM/250ML D5W 250 ML IV SCH (10:00)
[2016-12-07] MEDS ORDERED: LACTULOSE 20Gm/30ML SOLN PO PRN (11:15)
[2016-12-07] MEDS: ERTAPENEM 1GM IN NS 50 ML IV SCH (13:13)
[2016-12-07] MEDS ORDERED: PPN PER PHARMACY IV NR ×10 (20:00)
[2016-12-07] MEDS ORDERED: SOD CHL 0.45% WITH 20MEQ KCL 1,000 ML IV SCH (20:00)
[2016-12-08] MEDS: metroNIDAZOLE 500MG/100ML 100 ML IV SCH ×4 (00:15→17:32)
[2016-12-08] MEDS: ACCU-CHEK COMFORT CURVE STRIP VI SCH ×2 (00:15→06:00)
[2016-12-08] MEDS: MORPHINE SULFATE 4 MG/ML SYRG IV PRN ×6 (01:59→22:57)
[2016-12-08 05:00] VITALS: BP 144/82
[2016-12-08] MEDS: InsuLIN REG 1unit/0.01ml Soln (100units/ml) SC SCH ×2 (06:00)
[2016-12-08] MEDS: Boost Glucose Control 8 Ounces PO SCH ×4 (06:00→22:58)
[2016-12-08] MEDS: CALCIUM ACETATE 667 MG CAP PO SCH ×3 (06:00→22:58)
[2016-12-08 06:22] LABS: Basophils # (auto) 0.1 uL; Basophils % (auto) 0.5 % (0.0-2.0); CONDITION Y; DEFINITIVE SEE PRINTOUT; Eosinophils # (auto) 0.1 uL; Eosinophils % (auto) 0.8 % (0.0-7.0); Hematocrit 26.9 % (36.0-46.0); Hemoglobin 9.1 g/dL (12.2-16.2); Lymphocytes # (auto) 3.4 uL; Lymphocytes % (auto) 27.9 % (10.0-50.0); Mean Corpuscular Hemoglobin 31.6 pg (28.0-32.0); Mean Platelet Volume 12.6 fL (7.4-10.4); Monocytes # (auto) 2.1 uL; Monocytes % (auto) 17.3 % (0.0-12.0); Neutrophils # (auto) 6.5 uL; Neutrophils % (auto) 53.5 % (37.0-80.0); Platelet Count (auto) 132 10^3/uL (140-450); Red Cell Distribution Width 17.8 % (11.6-16.0); SUSPECT SEE PRINTOUT; White Blood Cell 12.2 10^3/uL (4.4-10.8)
[2016-12-08 06:58] LABS: BUN/Creatinine Ratio 43.3; Bilirubin, Total 1.4 mg/dL (0.2-1.0); Magnesium 1.9 mg/dL (1.6-2.6); Phosphorus 2.1 mg/dL (2.5-4.90); Potassium 4.5 mmol/L (3.5-5.1); Total Protein 6.2 g/dL (6.4-8.2)
[2016-12-08 09:00] VITALS: BP 122/72
[2016-12-08] MEDS ORDERED: SODIUM PHOSP 20MEQ(15MMOL) IN NS 100 ML IV ONE (10:00)
[2016-12-08] MEDS: FAMOTIDINE (10MG/ML) 2ML VL IV SCH ×2 (10:21→22:58)
[2016-12-08] MEDS: RIFAXIMIN 550 MG TAB PO SCH ×2 (10:22→22:58)
[2016-12-08] MEDS ORDERED: SPIRONOLACTONE 25 MG TAB PO ONE (11:45)
[2016-12-08] MEDS ORDERED: FUROSEMIDE 40 MG TAB PO ONE (11:45)
[2016-12-08 13:00] VITALS: BP 116/73
[2016-12-08] MEDS: ERTAPENEM 1GM IN NS 50 ML IV SCH (13:08)
[2016-12-08 16:46] VITALS: BP 134/87
[2016-12-08 20:00] VITALS: BP 120/68
[2016-12-08] MEDS ORDERED: [UNRECOGNIZED DRUG - OTHER] IV NR ×10 (20:00)
[2016-12-08] MEDS ORDERED: FAT EMULSION IV NR ×10 (20:00)
[2016-12-08] MEDS ORDERED: SODIUM PHOSPHATES IV NR ×10 (20:00)
[2016-12-08] MEDS ORDERED: SODIUM ACETATE IV NR ×10 (20:00)
[2016-12-08] MEDS: PROMETHAZINE HCL 25 MG/ML 1ML IV PRN (20:36)
[2016-12-08 22:01] VITALS: BP 120/68
[2016-12-09] MEDS: metroNIDAZOLE 500MG/100ML 100 ML IV SCH ×5 (00:22→23:51)
[2016-12-09 05:04] VITALS: BP 109/69
[2016-12-09] MEDS: Boost Glucose Control 8 Ounces PO SCH ×4 (05:32→22:08)
[2016-12-09] MEDS: CALCIUM ACETATE 667 MG CAP PO SCH ×3 (05:32→22:08)
[2016-12-09] MEDS: MORPHINE SULFATE 4 MG/ML SYRG IV PRN ×4 (05:32→22:07)
[2016-12-09 09:00] VITALS: BP 105/51
[2016-12-09] MEDS: RIFAXIMIN 550 MG TAB PO SCH ×2 (09:54→22:08)
[2016-12-09] MEDS: FAMOTIDINE (10MG/ML) 2ML VL IV SCH ×2 (09:54→22:07)
[2016-12-09] MEDS: PROMETHAZINE HCL 25 MG/ML 1ML IV PRN ×3 (09:55→22:07)
[2016-12-09] MEDS ORDERED: SPIRONOLACTONE 25 MG TAB PO SCH (10:00)
[2016-12-09] MEDS ORDERED: FUROSEMIDE 40 MG TAB PO SCH (10:00)
[2016-12-09] MEDS: ERTAPENEM 1GM IN NS 50 ML IV SCH (13:50)
[2016-12-09] MEDS: HYDROcodone-ACET 5/325MG TAB PO PRN (14:06)
[2016-12-09 15:06] VITALS: BP 133/83
[2016-12-09] MEDS: FUROSEMIDE 40 MG TAB PO SCH (17:59)
[2016-12-09 20:00] VITALS: BP 130/83
[2016-12-09 22:00] VITALS: BP 130/83
[2016-12-10] MEDS: HYDROcodone-ACET 5/325MG TAB PO PRN ×3 (03:03→22:05)
[2016-12-10 05:00] VITALS: BP 128/77
[2016-12-10] MEDS: FUROSEMIDE 40 MG TAB PO SCH ×2 (05:37→18:23)
[2016-12-10] MEDS: CALCIUM ACETATE 667 MG CAP PO SCH ×3 (05:37→22:04)
[2016-12-10] MEDS: metroNIDAZOLE 500MG/100ML 100 ML IV SCH ×3 (05:38→18:23)
[2016-12-10] MEDS: MORPHINE SULFATE 4 MG/ML SYRG IV PRN ×3 (05:38→18:24)
[2016-12-10] MEDS: Boost Glucose Control 8 Ounces PO SCH ×4 (05:49→22:00)
[2016-12-10 06:18] LABS: BUN/Creatinine Ratio 34.1; Calcium 7.8 mg/dL (8.5-10.1); Potassium 3.7 mmol/L (3.5-5.1)
[2016-12-10 09:00] VITALS: BP 126/75
[2016-12-10] MEDS: PROMETHAZINE HCL 25 MG/ML 1ML IV PRN (09:56)
[2016-12-10] MEDS: FAMOTIDINE (10MG/ML) 2ML VL IV SCH ×2 (09:56→22:04)
[2016-12-10] MEDS: SPIRONOLACTONE 25 MG TAB PO SCH (09:56)
[2016-12-10] MEDS: RIFAXIMIN 550 MG TAB PO SCH ×2 (09:57→22:04)
[2016-12-10 12:14] LABS: CONDITION Y; DEFINITIVE SEE PRINTOUT; Hemoglobin 8.9 g/dL (12.2-16.2); Mean Corpuscular Hemoglobin 31.3 pg (28.0-32.0); Mean Corpuscular Volume 94.8 fL (80.0-100.0); Mean Platelet Volume 11.7 fL (7.4-10.4); Platelet Count (auto) 176 10^3/uL (140-450); Red Cell Distribution Width 18.4 % (11.6-16.0); SUSPECT SEE PRINTOUT; White Blood Cell 10.1 10^3/uL (4.4-10.8)
[2016-12-10 12:41] LABS: Metamyelocytes % 0; Myelocytes % 0; Promyelocytes % 0; Reactive Lymphocytes 0
[2016-12-10 13:00] VITALS: BP 135/75
[2016-12-10] MEDS: ERTAPENEM 1GM IN NS 50 ML IV SCH (13:40)
[2016-12-10 14:25] LABS: Temperature: 23.1 C (20.0-25.0)
[2016-12-10 15:19] LABS: Platelet Estimate Adequate
[2016-12-10 17:00] VITALS: BP 131/85
[2016-12-10 20:00] VITALS: BP 146/99
[2016-12-10 22:00] VITALS: BP 146/99
[2016-12-11] MEDS: metroNIDAZOLE 500MG/100ML 100 ML IV SCH ×5 (00:02→23:36)
[2016-12-11] MEDS: MORPHINE SULFATE 4 MG/ML SYRG IV PRN ×2 (02:03→06:21)
[2016-12-11] MEDS: HYDROcodone-ACET 5/325MG TAB PO PRN ×3 (03:28→17:46)
[2016-12-11 04:56] VITALS: BP 137/80
[2016-12-11] MEDS: Boost Glucose Control 8 Ounces PO SCH ×4 (06:00→21:58)
[2016-12-11] MEDS: FUROSEMIDE 40 MG TAB PO SCH ×2 (06:19→17:48)
[2016-12-11] MEDS: CALCIUM ACETATE 667 MG CAP PO SCH ×3 (06:19→21:57)
[2016-12-11 08:00] VITALS: BP 142/92
[2016-12-11 08:55] VITALS: BP 142/92
[2016-12-11] MEDS: FAMOTIDINE (10MG/ML) 2ML VL IV SCH ×2 (10:21→21:57)
[2016-12-11] MEDS: SPIRONOLACTONE 25 MG TAB PO SCH (10:21)
[2016-12-11] MEDS: RIFAXIMIN 550 MG TAB PO SCH ×2 (10:21→21:57)
[2016-12-11] MEDS: PRO-STAT 64 30ML PO SCH ×2 (12:00→17:48)
[2016-12-11] MEDS: ERTAPENEM 1GM IN NS 50 ML IV SCH (13:31)
[2016-12-11] MEDS ORDERED: NITROGLYCERIN 0.4 MG SL TAB SL PRN (13:45)
[2016-12-11] MEDS ORDERED: PROMETHAZINE HCL 25 MG/ML 1ML IV PRN (13:45)
[2016-12-11 20:00] VITALS: BP 139/68
[2016-12-11] MEDS: MORPHINE SULF INJ 2 MG/ML SYRINGE 1ML IV PRN (20:47)
[2016-12-11 22:00] VITALS: BP 139/68
[2016-12-12] MEDS: MORPHINE SULF INJ 2 MG/ML SYRINGE 1ML IV PRN ×3 (02:38→14:13)
[2016-12-12 05:00] VITALS: BP 151/80
[2016-12-12 05:51] LABS: CONDITION Y; DEFINITIVE SEE PRINTOUT; Hematocrit 25.2 % (36.0-46.0); Hemoglobin 8.6 g/dL (12.2-16.2); Mean Corpuscular Hemoglobin 32.4 pg (28.0-32.0); Mean Corpuscular Hgb Conc. 34.1 g/dL (32.0-36.0); Mean Corpuscular Volume 95.2 fL (80.0-100.0); Mean Platelet Volume 11.3 fL (7.4-10.4); Platelet Count (auto) 186 10^3/uL (140-450); SUSPECT SEE PRINTOUT
[2016-12-12 05:52] LABS: Red Cell Distribution Width 25.7 % (11.6-16.0)
[2016-12-12 05:54] LABS: Metamyelocytes % 0; Myelocytes % 0; Promyelocytes % 0; Reactive Lymphocytes 0
[2016-12-12] MEDS: Boost Glucose Control 8 Ounces PO SCH ×4 (06:00→21:56)
[2016-12-12 06:08] LABS: INR 1.81 (0.9-1.15)
[2016-12-12 06:09] LABS: Prothrombin Time 19.9 sec (9.37-12.3)
[2016-12-12] MEDS: CALCIUM ACETATE 667 MG CAP PO SCH ×3 (06:11→21:56)
[2016-12-12] MEDS: metroNIDAZOLE 500MG/100ML 100 ML IV SCH ×3 (06:11→17:44)
[2016-12-12] MEDS: FUROSEMIDE 40 MG TAB PO SCH ×2 (06:12→17:43)
[2016-12-12 06:18] LABS: Albumin 2.2 g/dL (3.4-5.0); BUN/Creatinine Ratio 19.1; Calcium 7.6 mg/dL (8.5-10.1); Magnesium 1.3 mg/dL (1.6-2.6); Potassium 3.3 mmol/L (3.5-5.1)
[2016-12-12 06:20] LABS: Bilirubin, Total 1.4 mg/dL (0.2-1.0); Total Protein 7.1 g/dL (6.4-8.2)
[2016-12-12 07:13] LABS: Anisocytosis Slight; Giant Platelets Few; Platelet Estimate Adequate; White Blood Cell 10.3 10^3/uL (4.4-10.8)
[2016-12-12 07:14] LABS: Burr Cells MODERATE; Large Platelets FEW
[2016-12-12] MEDS: PRO-STAT 64 30ML PO SCH ×2 (08:00→17:45)
[2016-12-12 09:00] VITALS: BP 155/88
[2016-12-12] MEDS: RIFAXIMIN 550 MG TAB PO SCH ×2 (09:56→21:56)
[2016-12-12] MEDS: FAMOTIDINE (10MG/ML) 2ML VL IV SCH ×2 (09:57→21:56)
[2016-12-12] MEDS: SPIRONOLACTONE 25 MG TAB PO SCH (10:08)
[2016-12-12] MEDS: HYDROcodone-ACET 5/325MG TAB PO PRN (12:57)
[2016-12-12 13:00] VITALS: BP 148/77
[2016-12-12] MEDS: ERTAPENEM 1GM IN NS 50 ML IV SCH (14:13)
[2016-12-12 16:35] VITALS: BP 128/81
[2016-12-12 22:00] VITALS: BP 126/65
[2016-12-13] MEDS: metroNIDAZOLE 500MG/100ML 100 ML IV SCH ×3 (00:05→12:20)
[2016-12-13 05:00] VITALS: BP 124/76
[2016-12-13 05:32] LABS: Basophils # (auto) 0.1 uL; Basophils % (auto) 1.7 % (0.0-2.0); CONDITION Y; DEFINITIVE SEE PRINTOUT; Eosinophils # (auto) 0.3 uL; Eosinophils % (auto) 3.2 % (0.0-7.0); Hematocrit 23.7 % (36.0-46.0); Lymphocytes # (auto) 3.6 uL; Lymphocytes % (auto) 43.2 % (10.0-50.0); Mean Corpuscular Hemoglobin 32.6 pg (28.0-32.0); Mean Corpuscular Hgb Conc. 33.7 g/dL (32.0-36.0); Mean Corpuscular Volume 96.6 fL (80.0-100.0); Mean Platelet Volume 11.8 fL (7.4-10.4); Monocytes # (auto) 1.5 uL; Monocytes % (auto) 17.8 % (0.0-12.0); Neutrophils # (auto) 2.8 uL; Neutrophils % (auto) 34.1 % (37.0-80.0); Platelet Count (auto) 177 10^3/uL (140-450); SUSPECT SEE PRINTOUT; White Blood Cell 8.3 10^3/uL (4.4-10.8)
[2016-12-13 05:44] LABS: INR 1.77 (0.9-1.15)
[2016-12-13 05:50] LABS: Prothrombin Time 19.4 sec (9.37-12.3)
[2016-12-13] MEDS: FUROSEMIDE 40 MG TAB PO SCH ×2 (05:57→18:00)
[2016-12-13] MEDS: CALCIUM ACETATE 667 MG CAP PO SCH ×3 (05:57→22:17)
[2016-12-13] MEDS: Boost Glucose Control 8 Ounces PO SCH ×4 (05:57→22:00)
[2016-12-13 06:06] LABS: BUN/Creatinine Ratio 16.9; Calcium 7.4 mg/dL (8.5-10.1); Magnesium 1.3 mg/dL (1.6-2.6); Potassium 3.2 mmol/L (3.5-5.1)
[2016-12-13 06:09] LABS: Bilirubin, Total 1.1 mg/dL (0.2-1.0); Total Protein 6.5 g/dL (6.4-8.2)
[2016-12-13 07:03] LABS: Red Cell Distribution Width 25.7 % (11.6-16.0)
[2016-12-13 08:07] LABS: Anisocytosis Slight; Burr Cells FEW; Ovalocytes FEW; Platelet Estimate Adequate; Schistocytes FEW
[2016-12-13 09:00] VITALS: BP 142/86
[2016-12-13] MEDS: PRO-STAT 64 30ML PO SCH ×2 (10:32→18:00)
[2016-12-13] MEDS: SPIRONOLACTONE 25 MG TAB PO SCH (10:33)
[2016-12-13] MEDS: MORPHINE SULF INJ 2 MG/ML SYRINGE 1ML IV PRN ×3 (10:33→22:17)
[2016-12-13] MEDS: RIFAXIMIN 550 MG TAB PO SCH ×2 (10:34→22:16)
[2016-12-13] MEDS: FAMOTIDINE (10MG/ML) 2ML VL IV SCH ×2 (10:34→22:16)
[2016-12-13] MEDS: HYDROcodone-ACET 5/325MG TAB PO PRN (11:00)
[2016-12-13 13:00] VITALS: BP 115/66
[2016-12-13 17:33] VITALS: BP 123/73
[2016-12-13 22:00] VITALS: BP 121/65
[2016-12-13] MEDS: POTASSIUM CHL 20 Meq TABLET PO SCH (22:17)
[2016-12-14] MEDS: MORPHINE SULF INJ 2 MG/ML SYRINGE 1ML IV PRN ×3 (03:53→18:44)
[2016-12-14 05:00] VITALS: BP 122/77
[2016-12-14] MEDS: CALCIUM ACETATE 667 MG CAP PO SCH ×3 (05:24→22:36)
[2016-12-14] MEDS: FUROSEMIDE 40 MG TAB PO SCH ×2 (05:24→18:43)
[2016-12-14] MEDS: Boost Glucose Control 8 Ounces PO SCH ×4 (05:25→23:12)
[2016-12-14 07:10] LABS: BUN/Creatinine Ratio 15.4; Calcium 7.6 mg/dL (8.5-10.1)
[2016-12-14] MEDS: PRO-STAT 64 30ML PO SCH ×2 (08:00→18:00)
[2016-12-14 09:00] VITALS: BP 110/69
[2016-12-14] MEDS: SPIRONOLACTONE 25 MG TAB PO SCH (10:47)
[2016-12-14] MEDS: FAMOTIDINE (10MG/ML) 2ML VL IV SCH ×2 (10:47→22:37)
[2016-12-14] MEDS: POTASSIUM CHL 20 Meq TABLET PO SCH ×2 (10:48→22:36)
[2016-12-14] MEDS: RIFAXIMIN 550 MG TAB PO SCH ×2 (10:50→22:37)
[2016-12-14 13:00] VITALS: BP 119/65
[2016-12-14] MEDS: HYDROcodone-ACET 5/325MG TAB PO PRN ×2 (15:39→22:36)
[2016-12-14 17:00] VITALS: BP 129/85
[2016-12-14 20:00] VITALS: BP 129/85
[2016-12-15] MEDS: HYDROcodone-ACET 5/325MG TAB PO PRN ×3 (03:12→15:39)
[2016-12-15] MEDS: CALCIUM ACETATE 667 MG CAP PO SCH ×2 (06:16→15:38)
[2016-12-15] MEDS: FUROSEMIDE 40 MG TAB PO SCH ×2 (06:20→18:24)
[2016-12-15] MEDS: Boost Glucose Control 8 Ounces PO SCH ×3 (07:02→18:00)
[2016-12-15 08:00] VITALS: BP 129/78
[2016-12-15] MEDS: PRO-STAT 64 30ML PO SCH ×2 (08:00→18:00)
[2016-12-15 08:30] VITALS: BP 129/78
[2016-12-15] MEDS: RIFAXIMIN 550 MG TAB PO SCH (10:27)
[2016-12-15] MEDS: SPIRONOLACTONE 25 MG TAB PO SCH (10:27)
[2016-12-15] MEDS: FAMOTIDINE (10MG/ML) 2ML VL IV SCH (10:28)
[2016-12-15] MEDS: POTASSIUM CHL 20 Meq TABLET PO SCH (10:28)
[2016-12-15 12:30] VITALS: BP 124/68
[2016-12-15 14:49] VITALS: BP 129/78
[2016-12-15 17:39] VITALS: BP 142/79
== END 2016-12-15 19:30 | disposition home or self-care (01) | DRG 720 ==
LOC: EDBD 08:00 → ER 08:11 → TELE 08:12 → ICU WEST 19:50 → TELE-WESTW 12-04 17:00 → WEST WING 12-14 17:20
PROVIDERS: ADMIT Internal Medicine; ATTEND Internal Medicine Pulmonary Disease
PROC: 5A1955Z Respiratory Ventilation, Greater than 96 Consecutive Hours (ICD-10-PCS; principal; 2016-11-26)
PROC: 0BH17EZ Insertion of Endotracheal Airway into Trachea, Via Natural or Artificial Opening (ICD-10-PCS; 2016-11-26)
PROC: 0DJ08ZZ Inspection of Upper Intestinal Tract, Via Natural or Artificial Opening Endoscopic (ICD-10-PCS; 2016-11-27)
PROC: 30233K1 Transfusion of Nonautologous Frozen Plasma into Peripheral Vein, Percutaneous Approach (ICD-10-PCS; 2016-11-27)
PROC: 30233N1 Transfusion of Nonautologous Red Blood Cells into Peripheral Vein, Percutaneous Approach (ICD-10-PCS; 2016-11-27)
PROC: 30233P1 Transfusion of Nonautologous Frozen Red Cells into Peripheral Vein, Percutaneous Approach (ICD-10-PCS; 2016-11-27)
PROC: 0BJ08ZZ Inspection of Tracheobronchial Tree, Via Natural or Artificial Opening Endoscopic (ICD-10-PCS; 2016-12-03)
PROC: 30233N1 Transfusion of Nonautologous Red Blood Cells into Peripheral Vein, Percutaneous Approach (ICD-10-PCS; 2016-12-06)
DX: A41.9 Sepsis, unspecified organism (principal); J96.00 Acute respiratory failure, unspecified whether with hypoxia or hypercapnia; K76.7 Hepatorenal syndrome; N17.0 Acute kidney failure with tubular necrosis; R65.21 Severe sepsis with septic shock; E43 Unspecified severe protein-calorie malnutrition; G92 Toxic encephalopathy; K92.0 Hematemesis; J15.6 Pneumonia due to other Gram-negative bacteria; S42.211A Unspecified displaced fracture of surgical neck of right humerus, initial encounter for closed fracture; A04.7 Enterocolitis due to Clostridium difficile; D68.9 Coagulation defect, unspecified; E87.2 Acidosis; K76.6 Portal hypertension; N39.0 Urinary tract infection, site not specified; K70.31 Alcoholic cirrhosis of liver with ascites; M19.90 Unspecified osteoarthritis, unspecified site; R31.0 Gross hematuria; J44.9 Chronic obstructive pulmonary disease, unspecified; K80.20 Calculus of gallbladder without cholecystitis without obstruction; E86.0 Dehydration; K44.9 Diaphragmatic hernia without obstruction or gangrene; Z16.12 Extended spectrum beta lactamase (ESBL) resistance; E83.39 Other disorders of phosphorus metabolism; Z87.11 Personal history of peptic ulcer disease; D62 Acute posthemorrhagic anemia; E88.09 Other disorders of plasma-protein metabolism, not elsewhere classified; E87.0 Hyperosmolality and hypernatremia; E87.6 Hypokalemia; F17.210 Nicotine dependence, cigarettes, uncomplicated; N18.9 Chronic kidney disease, unspecified; I13.0 Hypertensive heart and chronic kidney disease with heart failure and stage 1 through stage 4 chronic kidney disease, or unspecified chronic kidney disease; I50.32 Chronic diastolic (congestive) heart failure; I25.10 Atherosclerotic heart disease of native coronary artery without angina pectoris; I27.2 Other secondary pulmonary hypertension; B96.20 Unspecified Escherichia coli [E. coli] as the cause of diseases classified elsewhere; J20.9 Acute bronchitis, unspecified; J44.0 Chronic obstructive pulmonary disease with (acute) lower respiratory infection; K31.89 Other diseases of stomach and duodenum; K70.40 Alcoholic hepatic failure without coma; M48.54XA Collapsed vertebra, not elsewhere classified, thoracic region, initial encounter for fracture; N13.30 Unspecified hydronephrosis; N93.9 Abnormal uterine and vaginal bleeding, unspecified; R04.0 Epistaxis; Z82.5 Family history of asthma and other chronic lower respiratory diseases; Z83.3 Family history of diabetes mellitus; G89.29 Other chronic pain; M54.9 Dorsalgia, unspecified; M85.80 Other specified disorders of bone density and structure, unspecified site; W19.XXXA Unspecified fall, initial encounter; Y93.89 Activity, other specified; Y92.89 Other specified places as the place of occurrence of the external cause; Y99.8 Other external cause status; Z90.49 Acquired absence of other specified parts of digestive tract; Z90.710 Acquired absence of both cervix and uterus; F10.20 Alcohol dependence, uncomplicated; Y90.9 Presence of alcohol in blood, level not specified; Z68.28 Body mass index [BMI] 28.0-28.9, adult
CPT/HCPCS: 36415; 36600; 51702; 70450; 71010; 73060; 74176; 76604; 76700; 76775; 80048; 80053; 80061; 80076; 80202; 81001; 82040; 82140; 82150; 82570; 82805; 82962; 83605; 83690; 83735; 83880; 84100; 84132; 84300; 84443; 84478; 84484; 85007; 85014; 85018; 85025; 85027; 85045; 85379; 85610; 85652; 85730; 86850; 86900; 86901; 86920; 87040; 87045; 87070; 87077; 87081; 87086; 87088; 87186; 87205; 87493; 87899; 92610; 93005; 93306; 94002; 94003; 94640; 96361; 96372; 96374; 96375; 97110; 97116; 97163; 97530; C9113; J0171; J0330; J1335; J1815; J2001; J2185; J2250; J2543; J3430; J3480; J3490

== ENCOUNTER 2017-04-02 09:42 | Emergency (ER) | payer OTHER ==
[~2017-04-02] VITALS: Ht 167.6 cm; Wt 55.3 kg
[2017-04-02 11:09] VITALS: BP 133/70
[2017-04-02 12:21] LABS: Basophils # (auto) 0.1 uL; Eosinophils # (auto) 0.2 uL; Lymphocytes # (auto) 3.6 uL; Monocytes # (auto) 0.8 uL; Neutrophils # (auto) 4.2 uL; Platelet Count (auto) 175 10^3/uL (140-450); Red Blood Cells 3.29 10^6/uL (4.0-5.20); Red Cell Distribution Width 18.8 % (11.8-14.3)
[2017-04-02 12:23] LABS: Basophils % (auto) 0.9 % (0.0-2.0); Eosinophils % (auto) 1.7 % (0.0-7.0); Hematocrit 35.1 % (36.0-46.0); Hemoglobin 11.9 g/dL (12.2-16.2); Lymphocytes % (auto) 40.6 % (10.0-50.0); Mean Corpuscular Hemoglobin 36.2 pg (28.0-32.0); Mean Corpuscular Hgb Conc. 33.9 g/dL (32.0-36.0); Mean Corpuscular Volume 106.8 fL (80.0-100.0); Monocytes % (auto) 9.6 % (0.0-12.0); Neutrophils % (auto) 47.2 % (37.0-80.0); Nucleated Red Blood Cells % 0.2 %; White Blood Cell 8.8 10^3/uL (4.4-10.8)
[2017-04-02 12:39] LABS: Albumin 3.7 g/dL (3.4-5.0); BUN/Creatinine Ratio 25.6; Bilirubin, Total 0.7 mg/dL (0.2-1.0); Calcium 9.5 mg/dL (8.5-10.1); Potassium 3.9 mmol/L (3.5-5.1)
[2017-04-02] MEDS ORDERED: KETOROLAC TROMETH 60MG/2ML VIAL IM ONE (13:15)
== END 2017-04-02 13:45 | disposition home or self-care (01) ==
LOC: ER 09:42
DX: S40.021A Contusion of right upper arm, initial encounter (principal); S42.351K Displaced comminuted fracture of shaft of humerus, right arm, subsequent encounter for fracture with nonunion; J44.9 Chronic obstructive pulmonary disease, unspecified; I10 Essential (primary) hypertension; F17.210 Nicotine dependence, cigarettes, uncomplicated; Z79.82 Long term (current) use of aspirin; X50.0XXA Overexertion from strenuous movement or load, initial encounter; Y93.89 Activity, other specified; Y92.89 Other specified places as the place of occurrence of the external cause; Y99.8 Other external cause status
CPT/HCPCS: 36415; 73060; 80053; 85025; 93971; 96372; 99285; J1885